=== PATIENT | male | born 1995 | race Two or more races ===

== ENCOUNTER 2022-03-14 08:30 | Outpatient (REF) | payer OTHER, SELFPAY ==
--- NOTE | ~2022-03-14 | XR_ITS ---
EXAMINATION: XR ELBOW, RIGHT CLINICAL INFORMATION: Pain. COMPARISON: None TECHNIQUE: AP, lateral, and oblique views of the right elbow. FINDINGS: The bones and soft tissues are normal. No fracture or joint effusion. Alignment is anatomic. Joint spaces are maintained. XR/XR elbow RT 2V IMPRESSION: Normal right elbow.
--- NOTE | ~2022-03-14 | XR_ITS ---
EXAMINATION: XR HAND, LEFT CLINICAL INFORMATION: Pain. COMPARISON: None TECHNIQUE: PA, lateral, and oblique views of the left hand. FINDINGS: The bones and soft tissues are normal. No fracture. Alignment is anatomic. Joint spaces are maintained. No erosions or soft tissue calcifications. XR/XR hand LT min 3V IMPRESSION: Normal left hand.
[2022-03-14 18:15] LABS: Blood Urea Nitrogen 19 mg/dL (9-16); C Reactive Protein 0.09 mg/dL (< or = 0.50); Estimated Glomerular Filt Rate > 60
[2022-03-16 23:06] LABS: Cyclic Citrullinated Peptide <16 UNITS
== END 2022-03-14 08:31 | disposition home or self-care (01) ==
LOC: HO.XRAY 08:30
PROVIDERS: Visit Provider Nurse Practitioner Family
DX: M79.642 Pain in left hand (principal); M25.521 Pain in right elbow; M79.671 Pain in right foot; M79.672 Pain in left foot
CPT/HCPCS: 36415; 73070; 73130; 82565; 84520; 86140; 86200; 99202

== ENCOUNTER → 2022-04-14 11:22 | Outpatient (BNVA) | payer OTHER, SELFPAY | PROVIDERS: Visit Provider Nurse Practitioner Family | DX: M79.671 Pain in right foot (principal); M79.672 Pain in left foot; M25.521 Pain in right elbow; M79.642 Pain in left hand; M25.532 Pain in left wrist | CPT/HCPCS: 99212 ==

== ENCOUNTER 2022-05-22 09:30 | Outpatient (RCR) | payer OTHER, SELFPAY ==
--- NOTE | 2022-06-28 09:54 | MHC.OT.DC ---
[address] [phone] F: [phone] Occupational Therapy Discharge Note Provider: Keysha Malhotra, Diagnosis: Left wrist pain Right biceps pain Date of Surgery: Date of Evaluation: 05/01/22 Date of Discharge: 06/28/22 Treatments to Date: 6 Cancellations to Date: 1 No Shows to Date: 1 Discharge Status: Patient Elected to Stop Discharge Summary: Pt continues to report constant left radial/thumb pain , may benefit from added cold rx to dec inflammation. Bicep appears to be improving , progressed to isotonic ex. Electronically Signed By: Asuncion Cain OT CHT CLT Reviewed/agree with student documentation: N/A Therapist: Please Sign and return to therapist, thank you for your referral.
== END 2022-06-28 09:55 | disposition home or self-care (01) ==
LOC: HO.OT 09:30
PROVIDERS: Visit Provider Nurse Practitioner Family
DX: M25.532 Pain in left wrist (principal); M25.521 Pain in right elbow
CPT/HCPCS: 97033; 97035; 97110; 97140; 97166

== ENCOUNTER 2022-06-07 10:00 | Outpatient (RCR) | payer OTHER, SELFPAY | END 2022-07-12 08:34 | disposition home or self-care (01) | LOC: HO.PT 10:00 | PROVIDERS: Visit Provider Podiatrist Foot Surgery | DX: M72.2 Plantar fascial fibromatosis (principal); M76.71 Peroneal tendinitis, right leg; M76.72 Peroneal tendinitis, left leg; M76.829 Posterior tibial tendinitis, unspecified leg | CPT/HCPCS: 97035; 97110; 97112; 97161 ==

== ENCOUNTER → 2022-11-03 11:10 | Outpatient (BNVA) | payer OTHER, SELFPAY | PROVIDERS: Visit Provider Nurse Practitioner Family | DX: M79.671 Pain in right foot (principal); M79.672 Pain in left foot; M25.521 Pain in right elbow; M79.642 Pain in left hand; R20.0 Anesthesia of skin; R20.2 Paresthesia of skin | CPT/HCPCS: 99212 ==

== ENCOUNTER 2022-11-13 15:43 | Outpatient (REF) | payer OTHER, SELFPAY | END 2022-11-13 15:44 | disposition home or self-care (01) | LOC: HO.LAB 15:43 | PROVIDERS: PCP Internal Medicine; Visit Provider Nurse Practitioner Family | DX: Z13.89 Encounter for screening for other disorder (principal) ==

== ENCOUNTER 2022-11-14 16:28 | Outpatient (REF) | payer OTHER, SELFPAY ==
--- NOTE | ~2022-11-14 | MR_ITS ---
EXAMINATION: MR ANKLE WITHOUT AND WITH CONTRAST, RIGHT CLINICAL INFORMATION: Right ankle pain and limited range of motion. COMPARISON: None TECHNIQUE: MRI of the ankle was performed before and after the intravenous administration of 10 mL gadolinium on a high-field scanner. FINDINGS: BONE AND ARTICULAR CARTILAGE: Normal marrow signal. No acute fracture or dislocation. No evidence of acute osseous injury. No concerning lytic or blastic osseous lesion. Intact articular cartilage. No talar osteochondral lesion. ACHILLES TENDON: Intact. OTHER TENDONS: Intact. LIGAMENTS: Mild heterogeneity of the anterior and posterior talofibular ligaments as well as the calcaneofibular ligament consistent with remote sprain/partial tears. No evidence of acute ligament injury. JOINT FLUID AND SOFT TISSUES: No significant joint effusion. Anterior to the anterior talofibular ligament, there is a lobulated cyst measuring approximately 1.9 x 0.6 x 0.7 cm with minimal peripheral enhancement, consistent with a synovial recess versus ganglion cyst. No enhancing soft tissue lesion. PLANTAR FASCIA: Intact. SINUS TARSI AND TARSAL TUNNEL: Patent. MR/MR ankle RT wo/w con IMPRESSION: 1. Synovial recess versus ganglion cyst anterior to the anterior talofibular ligament measuring up to 1.9 cm. 2. Remote sprain/partial tears of the anterior talofibular, posterior talofibular, and calcaneofibular ligaments. No evidence of acute ligament injury. 3. No acute osseous abnormality. No talar osteochondral lesion.
[2022-11-14 17:23] LABS: Blood Urea Nitrogen 18 mg/dL (9-16); C Reactive Protein 0.13 mg/dL (< or = 0.50); Estimated Glomerular Filt Rate > 60
[2022-11-14 17:30] LABS: Erythrocyte Sedimentation Rate 5 MM/HR (0-15)
[2022-11-17 20:54] LABS: HLA B27 Negative (Negative)
== END 2022-11-14 16:29 | disposition home or self-care (01) ==
LOC: HO.MRI 16:28
PROVIDERS: PCP Internal Medicine; Visit Provider Nurse Practitioner Family
DX: M25.50 Pain in unspecified joint (principal); M25.571 Pain in right ankle and joints of right foot
CPT/HCPCS: 36415; 73723; 82565; 84520; 85652; 86140; 86812; A9585

== ENCOUNTER 2022-11-20 17:26 | Outpatient (REF) | payer OTHER, SELFPAY ==
--- NOTE | ~2022-11-20 | XR_ITS ---
EXAMINATION: XR TEMPOROMANDIBULAR JOINT, BILATERAL CLINICAL INFORMATION: Arthralgia of the temporomandibular joints. COMPARISON: None TECHNIQUE: 5 views of the temporomandibular joints, including open and closed mouth views. FINDINGS: No evidence of fracture or malalignment. Appropriate anterior translocation of the mandibular head in relation to the temporal groove on the open mouth view bilaterally. Normal contour of the mandibular heads. XR/XR TMJ BI IMPRESSION: Unremarkable examination.
== END 2022-11-20 17:27 | disposition home or self-care (01) ==
LOC: HO.XRAY 17:26
PROVIDERS: PCP Internal Medicine; Visit Provider Nurse Practitioner Family
DX: M26.623 Arthralgia of bilateral temporomandibular joint (principal)
CPT/HCPCS: 70330

== ENCOUNTER 2022-12-28 05:54 | Outpatient (REF) | payer OTHER, SELFPAY ==
--- NOTE | ~2022-12-28 | XR_ITS ---
EXAMINATION: XR ANKLE, RIGHT CLINICAL INFORMATION: Pain. COMPARISON: Portions of the MRI right ankle dated 11/14/2022. TECHNIQUE: AP, lateral, and mortise views of the right ankle. FINDINGS: The bones and soft tissues are normal. No fracture. Alignment is anatomic. Joint spaces are maintained. No joint effusion. XR/XR ankle RT min 3V IMPRESSION: Normal right ankle. EXAMINATION: XR ANKLE, LEFT CLINICAL INFORMATION: Pain. COMPARISON: None available. TECHNIQUE: AP, lateral, and mortise views of the left ankle. FINDINGS: The bones and soft tissues are normal. No fracture. Alignment is anatomic. Joint spaces are maintained. No joint effusion. IMPRESSION: Normal left ankle.
--- NOTE | ~2022-12-28 | XR_ITS ---
EXAMINATION: XR ANKLE, RIGHT CLINICAL INFORMATION: Pain. COMPARISON: Portions of the MRI right ankle dated 11/14/2022. TECHNIQUE: AP, lateral, and mortise views of the right ankle. FINDINGS: The bones and soft tissues are normal. No fracture. Alignment is anatomic. Joint spaces are maintained. No joint effusion. XR/XR ankle LT min 3V IMPRESSION: Normal right ankle. EXAMINATION: XR ANKLE, LEFT CLINICAL INFORMATION: Pain. COMPARISON: None available. TECHNIQUE: AP, lateral, and mortise views of the left ankle. FINDINGS: The bones and soft tissues are normal. No fracture. Alignment is anatomic. Joint spaces are maintained. No joint effusion. IMPRESSION: Normal left ankle.
== END 2022-12-28 05:55 | disposition home or self-care (01) ==
LOC: HO.HOSX 05:54
PROVIDERS: Visit Provider Physician Assistant
DX: M21.41 Flat foot [pes planus] (acquired), right foot (principal); M21.42 Flat foot [pes planus] (acquired), left foot; M25.571 Pain in right ankle and joints of right foot; M25.572 Pain in left ankle and joints of left foot; G89.29 Other chronic pain; Z79.899 Other long term (current) drug therapy
CPT/HCPCS: 73610; 99202

== ENCOUNTER 2023-01-18 08:26 | Outpatient (REF) | payer OTHER, SELFPAY ==
--- NOTE | 2023-01-18 08:32 | EMG_ITS ---
Left median and ulnar motor and sensory studies were performed. Left radial sensory study was performed and paraspinal muscles were tested with a needle. IMPRESSION: Mild to moderate left ulnar neuropathy across cubital tunnel. MD OBEY Proctor/EDENILSON / [id number]
== END 2023-01-18 08:27 | disposition home or self-care (01) ==
LOC: HO.NEURO 08:26
PROVIDERS: PCP Internal Medicine; Visit Provider Nurse Practitioner Family
DX: R20.0 Anesthesia of skin (principal); R20.2 Paresthesia of skin
CPT/HCPCS: 95886; 95909

== ENCOUNTER → 2023-01-23 11:39 | Outpatient (BNVA) | payer OTHER, SELFPAY | PROVIDERS: PCP Internal Medicine; Visit Provider Nurse Practitioner Family | DX: G56.22 Lesion of ulnar nerve, left upper limb (principal); G89.29 Other chronic pain; M25.571 Pain in right ankle and joints of right foot; M25.572 Pain in left ankle and joints of left foot | CPT/HCPCS: 99212 ==

== ENCOUNTER 2023-02-21 14:48 | Outpatient (REF) | payer OTHER, SELFPAY ==
--- NOTE | ~2023-02-21 | XR_ITS ---
EXAMINATION: XR WRIST, LEFT CLINICAL INFORMATION: Pain. COMPARISON: Radiographs dated 03/14/2022. TECHNIQUE: PA, lateral, and oblique views of the left wrist. FINDINGS: The bones and soft tissues are normal. No fracture. Alignment is anatomic with normal joint spaces. No erosions or abnormal soft tissue calcifications. XR/XR wrist LT w scaphoid IMPRESSION: Normal left wrist.
== END 2023-02-21 14:49 | disposition home or self-care (01) ==
LOC: HO.HOSX 14:48
PROVIDERS: PCP Internal Medicine; Visit Provider Orthopaedic Surgery
DX: M25.532 Pain in left wrist (principal); G56.22 Lesion of ulnar nerve, left upper limb
CPT/HCPCS: 73110; 99202

== ENCOUNTER 2023-07-18 10:05 | Outpatient (AMB) | payer OTHER, SELFPAY ==
[2023-07-18 10:17] VITALS: BP 116/74; PULSE 66; TEMP 36.6; O2SAT 99; BMI 31.2
--- NOTE | 2023-07-18 10:17 | A.OFFVIS_ITS ---
Intake Vital Signs 07/18/23 10:17 Height 5 ft 9 in Weight 211 lb 6.773 oz BMI 31.2 BP 116/74 Blood Pressure Location Rt brachial Position Sitting Pulse 66 Pulse Source Pulse Oximeter Temp 97.9 F Temp Source Skin Pulse Oximetry (%) 99 Intake Visit Reasons: joint pain Intake Note: Pt seen today for follow up, last seen by Keysha in January. Continues to have bl ankle/foot pain. [employer] Manager Required: No Accompanied by: Self / Same As Patient Allergies Penicillins Allergy (Mild, Verified 07/18/23 10:18) mild Medication List - Last Reconciled 07/18/23 by Chriss Inman MD albuterol sulfate 90 mcg/actuation (ProAir HFA) 2 puffs inhalation Q4H PRN cetirizine 10 mg PO DAILY PRN cholecalciferol (vitamin D3) PO [cock up splint, left wear on wrist at night ] diclofenac sodium 1% 2 grams topical QID NS fluticasone propionate 50 mcg/actuation 1 spray intranasal BID ibuprofen 600 mg PO Q6H PRN [Spica thumb splint Wear on left wrist as tolerated] valacyclovir 1,000 mg PO DAILY PRN HPI HPI Comments History of Present Illness Details This is a 27-year-old male who presents for evaluation of bilateral ankle pain. Worse on the right This has been ongoing for the past 2 years. His right ankle MRI showed remote partial tear/sprains of multiple ankle joints. No evidence of inflammatory arthritis. He was evaluated by Podiatry and was told to get hoka shoes which are not helpful. 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 His ankle pain is most severe towards the end of his shift. Denies any swolling. Denies any other swollen or painful joints. 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[facility] [place]gias Physical Exam Vital Signs: Last Vital Signs Temp 97.9 F 07/18/23 10:17 Pulse 66 07/18/23 10:17 BP 116/74 07/18/23 10:17 Pulse Ox 99 07/18/23 10:17 BMI result Body Mass Index 31.2 Const General: cooperative, healthy appearing and comfortable Nutritional Appearance: overweight Orientation/consciousness: patient oriented x3 Limitations: no limitations HEENT Head: Yes normocephalic and Yes atraumatic Mouth: moist mucous membranes Resp Effort & Inspection: normal respiratory effort and able to speak in complete sentences Auscultation: clear to auscultation bilaterally Cardio Rate: regular rate Rhythm: regular rhythm GI Inspection: No distended Palpation (GI): Soft to palpation and nontender Skin General skin exam: no rashes or lesions noted Neuro General: patient oriented x3 Extrem Other: No active synovitis Flat feet Results Reviewed Results Reviewed: Laboratory Tests 03/14/22 11/14/22 11/14/22 17:15 16:41 16:41 ESR 5 BUN 18 H Creatinine 1.20 Estimated GFR > 60 C-Reactive Protein 0.13 Cycl Citrul Peptide IgG <16 HLA-B27 11/14/22 16:41 ESR BUN Creatinine Estimated GFR C-Reactive Protein Cycl Citrul Peptide IgG HLA-B27 Negative Ordering Physician: Keysha Moore NP Date of Service: 01/18/23 Procedure(s): NE electromyogram (EMG); NE nerve conduction velocity Accession Number(s): [id number]; [id number] Left median and ulnar motor and sensory studies were performed.? Left radial sensory study was performed and paraspinal muscles were tested with a needle. ? IMPRESSION:? 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 ? Ordering Physician: Levi Cash PA-C Date of Service: 12/28/22 Procedure(s): XR ankle LT min 3V Accession Number(s): [id number] EXAMINATION: XR ANKLE, RIGHT CLINICAL INFORMATION: Pain.? COMPARISON: Portions of the MRI right ankle dated 11/14/2022.? TECHNIQUE: AP, lateral, and mortise views of the right ankle. FINDINGS: The bones and soft tissues are normal. No fracture. Alignment is anatomic. Joint spaces are maintained. No joint effusion.? XR/XR ankle LT min 3V IMPRESSION: Normal right ankle. ? ? EXAMINATION: XR ANKLE, LEFT ? CLINICAL INFORMATION: Pain.? ? COMPARISON: None available.? ? TECHNIQUE: AP, lateral, and mortise views of the left ankle. ? FINDINGS: The bones and soft tissues are normal. No fracture. Alignment is anatomic. Joint spaces are maintained. No joint effusion.? ? IMPRESSION: Normal left ankle. Ordering Physician: Keysha Moore NP Date of Service: 11/20/22 Procedure(s): XR TMJ BI Accession Number(s): [id number] EXAMINATION: XR TEMPOROMANDIBULAR JOINT, BILATERAL CLINICAL INFORMATION: Arthralgia of the temporomandibular joints.? COMPARISON: None? TECHNIQUE: 5 views of the temporomandibular joints, including open and closed mouth views.? FINDINGS: No evidence of fracture or malalignment. Appropriate anterior translocation of the mandibular head in relation to the temporal groove on the open mouth view bilaterally. Normal contour of the mandibular heads.? XR/XR TMJ BI IMPRESSION: Unremarkable examination. Ordering Physician: Keysha Moore NP Date of Service: 11/14/22 Procedure(s): MR ankle RT wo/w con Accession Number(s): [id number] EXAMINATION: MR ANKLE WITHOUT AND WITH CONTRAST, RIGHT CLINICAL INFORMATION: Right ankle pain and limited range of motion.? COMPARISON: None? TECHNIQUE: MRI of the ankle was performed before and after the intravenous administration of 10 mL gadolinium on a high-field scanner. FINDINGS: BONE AND ARTICULAR CARTILAGE: Normal marrow signal. No acute fracture or dislocation. No evidence of acute osseous injury. No concerning lytic or blastic osseous lesion. Intact articular cartilage. No talar osteochondral lesion. ACHILLES TENDON: Intact. OTHER TENDONS: Intact. LIGAMENTS: Mild heterogeneity of the anterior and posterior talofibular ligaments as well as the calcaneofibular ligament consistent with remote sprain/partial tears. No evidence of acute ligament injury. JOINT FLUID AND SOFT TISSUES: No significant joint effusion. Anterior to the anterior talofibular ligament, there is a lobulated cyst measuring approximately 1.9 x 0.6 x 0.7 cm with minimal peripheral enhancement, consistent with a synovial recess versus ganglion cyst. No enhancing soft tissue lesion. PLANTAR FASCIA: Intact. SINUS TARSI AND TARSAL TUNNEL: Patent. MR/MR ankle RT wo/w con IMPRESSION: 1. Synovial recess versus ganglion cyst anterior to the anterior talofibular ligament measuring up to 1.9 cm. ? 2. Remote sprain/partial tears of the anterior talofibular, posterior talofibular, and calcaneofibular ligaments. No evidence of acute ligament injury. ? 3. No acute osseous abnormality. No talar osteochondral lesion. Ordering Physician: Keysha Moore NP Date of Service: 03/14/22 Procedure(s): XR hand LT min 3V Accession Number(s): [id number] EXAMINATION: XR HAND, LEFT CLINICAL INFORMATION: Pain.? COMPARISON: None? TECHNIQUE: PA, lateral, and oblique views of the left hand. FINDINGS: The bones and soft tissues are normal. No fracture. Alignment is anatomic. Joint spaces are maintained. No erosions or soft tissue calcifications.? XR/XR hand LT min 3V IMPRESSION: Normal left hand. Ordering Physician: Keysha Moore EXTENSION SERVICE ADVISOR Date of Service: 03/14/22 Procedure(s): XR elbow RT 2V Accession Number(s): [id number] EXAMINATION: XR ELBOW, RIGHT CLINICAL INFORMATION: Pain.? COMPARISON: None? TECHNIQUE: AP, lateral, and oblique views of the right elbow. FINDINGS: The bones and soft tissues are normal. No fracture or joint effusion. Alignment is anatomic. Joint spaces are maintained.? XR/XR elbow RT 2V IMPRESSION: Normal right elbow. 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 Patient has had a right ankle MRI which only showed old old partial ligament tears/sprains without any evidence of inflammatory arthritis. Comprehensive serology and inflammatory markers are negative/normal. Patient had minimal improvement with oral NSAIDs. Was evaluated by Podiatry and was advised to get Hoka shoes which are not helpful. There is no evidence of an autoimmune rheumatic disease upon my evaluation today. Patient requesting Voltaren gel trial. If helpful patient can get refills from his PCP Follow-up as needed Plan I spent 26 minutes reviewing patient's chart, evaluating patient, placing orders, counseling patient and documenting in the chart Medications: New diclofenac sodium 1% apply to foot/ankle 2 grams topical QID 100 grams 0RF NS Coding Level of Care Code Est Pt Level 4 (97718) Diagnoses Chronic pain of both ankles M25.571; M25.572; G89.29 Chronicity: chronic
== END 2023-07-18 10:42 | disposition home or self-care (01) ==
PROVIDERS: PCP Internal Medicine; Visit Provider Student in an Organized Health Care Education/Training Program
DX: M25.571 Pain in right ankle and joints of right foot (principal); M25.572 Pain in left ankle and joints of left foot; G89.29 Other chronic pain
CPT/HCPCS: 99214

== ENCOUNTER → 2023-07-18 10:05 | Outpatient (BNVA) | payer OTHER, SELFPAY | PROVIDERS: PCP Internal Medicine; Visit Provider Student in an Organized Health Care Education/Training Program | DX: M25.571 Pain in right ankle and joints of right foot (principal); M25.572 Pain in left ankle and joints of left foot; G89.29 Other chronic pain | CPT/HCPCS: 99212 ==

== ENCOUNTER 2023-12-11 13:49 | Outpatient (AMB) | payer OTHER, SELFPAY ==
--- NOTE | 2023-12-11 14:09 | MHC.OFFVIS ---
Intake Vital Signs 12/11/23 14:11 Height 5 ft 9 in Weight 219 lb 5.759 oz BMI 32.4 BP 134/70 Blood Pressure Location Rt brachial Position Sitting Pulse 64 Pulse Source Pulse Oximeter Temp 97.5 F Temp Source Skin Pulse Oximetry (%) 99 Oxygen Delivery Method Room Air Intake Visit Reasons: Ankle pain Intake Note: Pt last seen Jul, 2023, presents today for bl ankle pain, worse on right. Pain scale 3-4 He states ankle pain has never stopped and has been more bothersome for the past few days . Also mentions he has a bump on right ankle. Denies redness or hot to touch. No fevers or chills. Weight bearing with full ROM. Has not taken anything for the pain. He has ibuprofen but stated he doesn't really use it because I don't really care about the pain, I just wanna know why there is pain. 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 Accompanied by: Self / Same As Patient Allergies Penicillins Allergy (Mild, Verified 12/11/23 14:13) mild Medication List - Last Reconciled 12/11/23 by Chriss Inman MD albuterol sulfate 90 mcg/actuation (ProAir HFA) 2 puffs inhalation Q4H PRN cetirizine 10 mg PO DAILY PRN cholecalciferol (vitamin D3) PO [cock up splint, left wear on wrist at night ] diclofenac sodium 3% 1 appl topical BID NS fluticasone propionate 50 mcg/actuation 1 spray intranasal BID ibuprofen 600 mg PO Q6H PRN [Spica thumb splint Wear on left wrist as tolerated] valacyclovir 1,000 mg PO DAILY PRN HPI HPI Comments History of Present Illness Details Patient presents emergently for evaluation of right ankle pain and swelling. The started a few days ago. He noticed mild swelling on the outer aspect of his right ankle. Minimal tenderness to palpation in that area. It causes minimal pain. 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 Denies any other joint pain. NSAIDs do not help too much. Rheumatology visit 07/2023: This is a 27-year-old male who presents for evaluation of bilateral ankle pain. This has been ongoing for the last 2-3 years. His right ankle MRI showed remote partial tear/sprains of multiple ankle joints. No evidence of inflammatory arthritis. He was evaluated by Podiatry and was told to get hoka shoes which are not helpful. 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 His ankle pain is most severe towards the end of his shift. Denies any swolling. Denies any other swollen or painful joints. [facility] Medical History Arthralgia of multiple joints Surgical History H/O lymph node biopsy H/O wisdom tooth extraction Family History Mother Asthma Father Diabetes Maternal Grandmother Diabetes Social History Alcohol intake: current Alcohol intake frequency: does not drink Patient Tobacco Use Status: Current someday Tobacco user Current occupational status: employed Current occupation: pharmacy / ambidextrous Review of Systems [facility] Reports arthralgias and Reports joint swelling Physical Exam Vital Signs: Last Vital Signs Temp 97.5 F 12/11/23 14:11 Pulse 64 12/11/23 14:11 BP 134/70 12/11/23 14:11 Pulse Ox 99 12/11/23 14:11 Oxygen Delivery Method Room Air 12/11/23 14:11 BMI result Body Mass Index 32.4 Const General: cooperative, healthy appearing and comfortable Nutritional Appearance: overweight Orientation/consciousness: patient oriented x3 Limitations: no limitations HEENT Head: Yes normocephalic and Yes atraumatic Mouth: moist mucous membranes Resp Effort & Inspection: normal respiratory effort and able to speak in complete sentences Cardio Rate: regular rate Rhythm: regular rhythm Neuro General: patient oriented x3 Extrem Other: No active synovitis Minimal swelling of the inferolateral aspect of the right ankle. Minimally tender to palpation. No warmth Minimal tenderness at the right common extensor origin on the right Negative resisted wrist extension test Negative rotator cuff provocative maneuvers bilaterally Negative Speed's test bilaterally Flat feet Results Reviewed Results Reviewed: Laboratory Tests 03/14/22 11/14/22 11/14/22 17:15 16:41 16:41 ESR 5 BUN 18 H Creatinine 1.20 Estimated GFR > 60 C-Reactive Protein 0.13 Cycl Citrul Peptide IgG <16 HLA-B27 11/14/22 16:41 ESR BUN Creatinine Estimated GFR C-Reactive Protein Cycl Citrul Peptide IgG HLA-B27 Negative Ordering Physician: Keysha Moore GUEST SERVICE TEAM LEADER Date of Service: 01/18/23 Procedure(s): NE electromyogram (EMG); NE nerve conduction velocity Accession Number(s): [id number]; [id number] Left median and ulnar motor and sensory studies were performed.? Left radial sensory study was performed and paraspinal muscles were tested with a needle. ? IMPRESSION:? 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 ? Ordering Physician: Levi Cash PA-C Date of Service: 12/28/22 Procedure(s): XR ankle LT min 3V Accession Number(s): [id number] EXAMINATION: XR ANKLE, RIGHT CLINICAL INFORMATION: Pain.? COMPARISON: Portions of the MRI right ankle dated 11/14/2022.? TECHNIQUE: AP, lateral, and mortise views of the right ankle. FINDINGS: The bones and soft tissues are normal. No fracture. Alignment is anatomic. Joint spaces are maintained. No joint effusion.? XR/XR ankle LT min 3V IMPRESSION: Normal right ankle. ? ? EXAMINATION: XR ANKLE, LEFT ? CLINICAL INFORMATION: Pain.? ? COMPARISON: None available.? ? TECHNIQUE: AP, lateral, and mortise views of the left ankle. ? FINDINGS: The bones and soft tissues are normal. No fracture. Alignment is anatomic. Joint spaces are maintained. No joint effusion.? ? IMPRESSION: Normal left ankle. Ordering Physician: Keysha Moore GUEST SERVICE TEAM LEADER Date of Service: 11/20/22 Procedure(s): XR TMJ BI Accession Number(s): [id number] EXAMINATION: XR TEMPOROMANDIBULAR JOINT, BILATERAL CLINICAL INFORMATION: Arthralgia of the temporomandibular joints.? COMPARISON: None? TECHNIQUE: 5 views of the temporomandibular joints, including open and closed mouth views.? FINDINGS: No evidence of fracture or malalignment. Appropriate anterior translocation of the mandibular head in relation to the temporal groove on the open mouth view bilaterally. Normal contour of the mandibular heads.? XR/XR TMJ BI IMPRESSION: Unremarkable examination. Ordering Physician: Keysha Moore GUEST SERVICE TEAM LEADER Date of Service: 11/14/22 Procedure(s): MR ankle RT wo/w con Accession Number(s): [id number] EXAMINATION: MR ANKLE WITHOUT AND WITH CONTRAST, RIGHT CLINICAL INFORMATION: Right ankle pain and limited range of motion.? COMPARISON: None? TECHNIQUE: MRI of the ankle was performed before and after the intravenous administration of 10 mL gadolinium on a high-field scanner. FINDINGS: BONE AND ARTICULAR CARTILAGE: Normal marrow signal. No acute fracture or dislocation. No evidence of acute osseous injury. No concerning lytic or blastic osseous lesion. Intact articular cartilage. No talar osteochondral lesion. ACHILLES TENDON: Intact. OTHER TENDONS: Intact. LIGAMENTS: Mild heterogeneity of the anterior and posterior talofibular ligaments as well as the calcaneofibular ligament consistent with remote sprain/partial tears. No evidence of acute ligament injury. JOINT FLUID AND SOFT TISSUES: No significant joint effusion. Anterior to the anterior talofibular ligament, there is a lobulated cyst measuring approximately 1.9 x 0.6 x 0.7 cm with minimal peripheral enhancement, consistent with a synovial recess versus ganglion cyst. No enhancing soft tissue lesion. PLANTAR FASCIA: Intact. SINUS TARSI AND TARSAL TUNNEL: Patent. MR/MR ankle RT wo/w con IMPRESSION: 1. Synovial recess versus ganglion cyst anterior to the anterior talofibular ligament measuring up to 1.9 cm. ? 2. Remote sprain/partial tears of the anterior talofibular, posterior talofibular, and calcaneofibular ligaments. No evidence of acute ligament injury. ? 3. No acute osseous abnormality. No talar osteochondral lesion. Ordering Physician: Keysha Moore GUEST SERVICE TEAM LEADER Date of Service: 03/14/22 Procedure(s): XR hand LT min 3V Accession Number(s): [id number] EXAMINATION: XR HAND, LEFT CLINICAL INFORMATION: Pain.? COMPARISON: None? TECHNIQUE: PA, lateral, and oblique views of the left hand. FINDINGS: The bones and soft tissues are normal. No fracture. Alignment is anatomic. Joint spaces are maintained. No erosions or soft tissue calcifications.? XR/XR hand LT min 3V IMPRESSION: Normal left hand. Ordering Physician: Keysha Moore GUEST SERVICE TEAM LEADER Date of Service: 03/14/22 Procedure(s): XR elbow RT 2V Accession Number(s): [id number] EXAMINATION: XR ELBOW, RIGHT CLINICAL INFORMATION: Pain.? COMPARISON: None? TECHNIQUE: AP, lateral, and oblique views of the right elbow. FINDINGS: The bones and soft tissues are normal. No fracture or joint effusion. Alignment is anatomic. Joint spaces are maintained.? XR/XR elbow RT 2V IMPRESSION: Normal right elbow. 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 Patient has had a right ankle MRI which only showed old old partial ligament tears/sprains without any evidence of inflammatory arthritis. Comprehensive serology and inflammatory markers are negative/normal. Patient had minimal improvement with oral NSAIDs. Today patient presents with few day history with abrupt onset of mild swelling on the inferolateral aspect of right ankle with mild pain especially after a long day. Upon evaluation this is likely mechanical pain rather than inflammatory arthritis. Symptoms are quite mild. Does not require any specific treatment. Follow-up as needed Plan I spent 16 minutes reviewing patient's chart, evaluating patient, counseling patient and documenting in the chart Coding Level of Care Code Est Pt Level 3 (64878) Diagnoses Chronic pain of both ankles M25.571; M25.572; G89.29 Chronicity: chronic
[2023-12-11 14:11] VITALS: BP 134/70; PULSE 64; TEMP 36.4; O2SAT 99; BMI 32.4
== END 2023-12-11 14:44 | disposition home or self-care (01) ==
PROVIDERS: PCP Internal Medicine; Visit Provider Student in an Organized Health Care Education/Training Program
DX: M25.571 Pain in right ankle and joints of right foot (principal); M25.572 Pain in left ankle and joints of left foot; G89.29 Other chronic pain
CPT/HCPCS: 99213

== ENCOUNTER → 2023-12-11 13:49 | Outpatient (BNVA) | payer OTHER, SELFPAY | PROVIDERS: PCP Internal Medicine; Visit Provider Student in an Organized Health Care Education/Training Program | DX: M25.571 Pain in right ankle and joints of right foot (principal); M25.572 Pain in left ankle and joints of left foot; G89.29 Other chronic pain | CPT/HCPCS: 99212 ==